=== PATIENT | female | born 1990 | race Two or more races ===

== ENCOUNTER 2019-12-23 16:25 | Observation (INO) | payer MEDICAID, OTHER ==
[~2019-12-23] VITALS: Ht 152.4 cm; Wt 74.4 kg
[2019-12-23 17:13] VITALS: BP 124/77
[2019-12-23] MEDS ORDERED: PREN-96 PO (20:24)
== END 2019-12-23 19:51 | disposition home or self-care (01) | DRG 566 ==
LOC: ER 16:25 → LDRP 18:16
PROVIDERS: ADMIT Obstetrics & Gynecology; ATTEND Obstetrics & Gynecology
DX: O46.93 Antepartum hemorrhage, unspecified, third trimester (principal); O26.893 Other specified pregnancy related conditions, third trimester; R10.9 Unspecified abdominal pain; Z3A.39 39 weeks gestation of pregnancy
CPT/HCPCS: 59025; 81002; 99284; G0378

== ENCOUNTER 2019-12-26 02:10 | Inpatient (IN) | payer MEDICAID ==
[~2019-12-26] VITALS: Ht 154.9 cm; Wt 74.4 kg
[~2019-12-26 02:10] MED LIST: PREN-96 PO
[2019-12-26] MEDS ORDERED: LACT. RINGERS/OXYTOCIN 20UNITS 1,000 ML IV SCH (05:08)
[2019-12-26] MEDS ORDERED: LACTATED RINGER'S 1,000 ML IV SCH (05:08)
[2019-12-26] MEDS ORDERED: WITCH HAZEL-GLYCERIN PAD TOP PRN (05:15)
[2019-12-26] MEDS ORDERED: PHISODERM TOP SOLN 240ML BTL TOP PRN (05:15)
[2019-12-26] MEDS ORDERED: LIDOCAINE 2%HCL (LOCAL ANESTH.) INJ 20ML MDV ID ONE (05:15)
[2019-12-26] MEDS ORDERED: METHYLERGONOVINE MALEATE 0.2 MG/ML AMP IM PRN (05:15)
[2019-12-26] MEDS ORDERED: PENICILLIN G POT 5MIL/D5 50ML 50 ML IV ONE (05:15)
[2019-12-26] MEDS ORDERED: CARBOPROST TROMETHAMINE 250 MCG/1ML VIAL IM PRN (05:15)
[2019-12-26] MEDS ORDERED: DERMOPLAST 60ML BOTTLE TOP PRN (05:15)
[2019-12-26 05:54] LABS: Basophils # (auto) 0.1 10 ^3/uL (0-0.2); Basophils % (auto) 0.5 % (0.0-2.0); Eosinophils # (auto) 0 10 ^3/uL (0-0.8); Eosinophils % (auto) 0.2 % (0.0-7.0); Hematocrit 36.9 % (36.0-46.0); Hemoglobin 12.1 g/dL (12.2-16.2); Lymphocytes # (auto) 2.2 10 ^3/uL (0.4-5.4); Lymphocytes % (auto) 11.3 % (10.0-50.0); Mean Corpuscular Hemoglobin 28.1 pg (28.0-32.0); Mean Corpuscular Hgb Conc. 32.9 g/dL (32.0-36.0); Mean Corpuscular Volume 85.2 fL (80.0-100.0); Monocytes # (auto) 1.3 10 ^3/uL (0-1.3); Monocytes % (auto) 6.7 % (0.0-12.0); Neutrophils # (auto) 15.7 10 ^3/uL (1.6-8.6); Neutrophils % (auto) 81.3 % (37.0-80.0); Nucleated Red Blood Cells % 0.1 %; Platelet Count (auto) 222 10^3/uL (140-450); Red Blood Cells 4.32 10^6/uL (4.0-5.20); Red Cell Distribution Width 15.2 % (11.8-14.3); White Blood Cell 19.3 10^3/uL (4.4-10.8)
[2019-12-26 06:10] LABS: INR 0.94 (0.9-1.15); Partial Thromboplastin Time 28.8 sec (23.64-32.05)
[2019-12-26 06:20] LABS: Albumin 2.7 g/dL (3.4-5.0); Calcium 8.8 mg/dL (8.5-10.1); Potassium 3.8 mmol/L (3.5-5.1)
[2019-12-26 06:26] LABS: BUN/Creatinine Ratio 14.7; Bilirubin, Total 0.3 mg/dL (0.2-1.0); Total Protein 7.3 g/dL (6.4-8.2)
[2019-12-26 08:47] LABS: Urine Bacteria NONE SEEN /hpf (None Seen); Urine Blood 1+ /uL (Negative); Urine Specific Gravity 1.011 (1.001-1.035); Urine WBC 1 /hpf (0 - 5)
--- NOTE | 2019-12-26 09:00 | NUR ---
Ambulation: Patient OOB with standby assistance by RN. Patient ambulated to bathroom with steady gait. Patient unable to void. [facility] teaching provided with returned demonstration by patient. Clean gown provided and bed linen changed. Patient ambulated back to bed with steady gait and no distress noted.
[2019-12-26 09:05] LABS: Amphetamine Screen, Urine NEGATIVE (NEGATIVE); Barbiturate Scree,Urine NEGATIVE (NEGATIVE); Benzodiazephine Screen, Urine NEGATIVE (NEGATIVE); Cannabinoid Screen, Urine NEGATIVE (NEGATIVE); Cocaine Screen, Urine NEGATIVE (NEGATIVE)
[2019-12-26 09:08] LABS: Alcohol, Urine < 3.0 mg/dL (0-10); Opiate Scree,Urine NEGATIVE (NEGATIVE); Phencyclidine Screen, Urine NEGATIVE (NEGATIVE)
--- NOTE | 2019-12-26 09:10 | NUR ---
ASSUMED CARE OF STABLE PT AFTER RECEIVING REPORT FROM DARNELL Escobar RN.
[2019-12-26] MEDS ORDERED: PENICILLIN G POTASSIUM 2,500,000 UNITS in D5W 5% 50 ML IV SCH (09:15)
--- NOTE | 2019-12-26 09:15 | NUR ---
IN TO CHECK ON PT, TO BREAST, GOOD BONDING NOTED, PT DENIES PAIN AT THIS TIME, NO S/S OF DISTRESS NOTED.
--- NOTE | 2019-12-26 10:00 | NUR ---
PT OOB TO VOID NOT NOTED BY THIS RN, PT DID NOT CALL FOR ASSISTANCE, PT VOIDED 650 ML'S WITHOUT DISTRESS. PT ENCOURAGED TO REQUEST ASSISTANCE THE NEXT TIME GETTING UP TO VOID.
[2019-12-26 11:20] VITALS: BP 121/69
--- NOTE | 2019-12-26 12:00 | NUR ---
PT TRANSFERRED TO ROOM 8B VIA STEADY AMBULATION, NO S/S OF DISTRESS NOTED.
--- NOTE | 2019-12-26 12:15 | NUR ---
REPORT ON STABLE PT TO DARNELL ELLSWORTH RN.
[2019-12-26 15:15] VITALS: BP 106/64
[2019-12-26] MEDS ORDERED: ACETAMINOPHEN 325 MG TAB PO PRN (16:00)
[2019-12-26] MEDS ORDERED: IBUPROFEN 600 MG TAB PO PRN (16:00)
[2019-12-26 19:00] VITALS: BP 122/66
--- NOTE | 2019-12-26 20:16 | NUR ---
IV removal IV DC'd with clean technique, catheter fully intact. Pressure dressing applied to site. Patient tolerated well. NOTE:
[2019-12-26 23:00] VITALS: BP 100/46
[2019-12-27 03:00] VITALS: BP 103/62
[2019-12-27 07:00] VITALS: BP 105/65
--- NOTE | 2019-12-27 10:15 | NUR ---
Discharge: Discharge instructions given as ordered. Pt encouraged to follow up with CR[employer] AND COLLECTIONS ANALYST as instructed. All questions and concerns addressed. Patient verbalized understanding. Medication reconciliation completed and copy given to patient. All required/requested vaccines given and copies of vaccinations given to patient. Patient encouraged to prepare to depart unit.
--- NOTE | 2019-12-27 10:55 | NUR ---
Discharge: Patient taken to vehicle via ambulating with all personal belongings, accompanied by staff and family member. No distress noted at time of departure, no adverse changes in status since initial assessment. All d/c education translated in portuguese by
== END 2019-12-27 10:55 | disposition home or self-care (01) | DRG 560 ==
LOC: LDRP 02:10 → OBSVTOIN 04:57 → LDRP 05:19
PROVIDERS: ADMIT Obstetrics & Gynecology; ATTEND Obstetrics & Gynecology
PROC: 10E0XZZ Delivery of Products of Conception, External Approach (ICD-10-PCS; principal; 2019-12-26)
PROC: 0HQ9XZZ Repair Perineum Skin, External Approach (ICD-10-PCS; 2019-12-26)
DX: O77.0 Labor and delivery complicated by meconium in amniotic fluid (principal); O70.0 First degree perineal laceration during delivery; O99.824 Streptococcus B carrier state complicating childbirth; Z3A.39 39 weeks gestation of pregnancy; Z37.0 Single live birth
CPT/HCPCS: 36415; 59025; 59409; 80053; 80307; 81001; 81002; 84112; 84550; 85025; 85610; 85730; 86592; 86850; 86900; 86901; 96360; 96361; G0378; J2540; J2590; J7060